=== PATIENT | male | born 1955 | race Caucasian/White ===

== ENCOUNTER 2024-03-05 12:12 | Emergency (ER) | payer MEDICARE, OTHER, SELFPAY ==
[2024-03-05 12:45] VITALS: BP 127/68; PULSE 53; RESP 16; TEMP 37.1; O2SAT 96; BMI 28.6
--- NOTE | 2024-03-05 12:50 | DI.RAD.S_ITS ---
PROCEDURE: XR CHEST 1V INDICATIONS: chest pain TECHNIQUE: One view of the chest was acquired. COMPARISON: None. FINDINGS: Surgical changes and devices: None. Lungs and pleura: Minor left base atelectasis. No pneumothorax or significant pleural effusion. Nonspecific, small irregular nodular opacity in the left mid lung and at the left lung base. Mediastinum: Mediastinal contours appear normal. Heart size is normal. Bones and chest wall: No suspicious bony lesions. Overlying soft tissues appear unremarkable. IMPRESSION: Minor left base atelectasis or small infection. Small nodular opacities in the left mid and lower lung. Further evaluation with two view chest may be helpful and/or comparison to prior exams. Dictated by: Ruby Fish M.D. on 03/05/2024 at 15:14 Approved by: Ruby Fish M.D. on 03/05/2024 at 15:16
[2024-03-05 13:03] LABS: Add Manual Diff / Slide Review NO; Basophils Absolute Auto 0 /uL (0-100); Basophils Percent Auto 0.9 % (0-2); Eosinophils Absolute Auto 200 /uL (0-450); Eosinophils Percent Auto 4.1 % (2-4); Hematocrit 43.7 % (41-53); Hemoglobin 14.7 g/dL (13.5-17.5); Lymphocytes Absolute Auto 300 /uL (1100-4500); Lymphocytes Percent Auto 8.6 % (25-40); Mean Corpuscular HGB Conc 33.6 % (30-36); Mean Corpuscular Hemoglobin 30.7 PG (26-34); Mean Corpuscular Volume 91.4 fL (80-100); Monocytes Absolute Auto 300 /uL (0-900); Monocytes Percent Auto 8.8 % (3-14); Neutrophils Absolute Auto 2900 /uL (1500-7000); Neutrophils Percent Auto 77.6 % (50-75); Platelet Count 195 X10^3/uL (150-400); Red Blood Cell Count 4.78 X10^6/uL (4.5-5.9); Red Cell Distribution Width 13.3 % (11.6-14.8); White Blood Cell Count 3.7 X10^3/uL (4.5-11.0)
[2024-03-05 13:14] LABS: Prothrombin Time 11.7 SECONDS (9.4-12.5)
[2024-03-05 13:15] LABS: PTT Partial Thromboplastin Tim 26 SECONDS (25.1-36.5)
[2024-03-05 13:19] LABS: Alanine Aminotransferase 25 IU/L (<50); Albumin 4.3 g/dL (3.5-5.0); Albumin Globulin Ratio 1.9 (1.0-2.8); Alkaline Phosphatase 67 U/L (38-126); Aspartate Aminotransferase 32 IU/L (17-59); BUN Creatinine Ratio 14.9 (6-22); Blood Urea Nitrogen 11 mg/dL (9-20); Carbon Dioxide 25 mmol/L (22-32); Chloride 108 mmol/L (98-107); Creatine Kinase 81 U/L (55-170); Estimated Glomerular Filt Rate > 60 mL/min (>60); Globulin 2.3 g/dL (1.7-4.1); Glucose 108 mg/dL (80-110); Lipase 80 U/L (23-300); Magnesium 2.1 mg/dL (1.6-2.3); Potassium 4.5 mmol/L (3.4-5.1); Sodium 137 mmol/L (137-145); Total Protein 6.6 g/dL (6.3-8.2)
[2024-03-05 13:20] LABS: HEMOLYSIS 53 (0-50)
[2024-03-05 13:31] LABS: Troponin I < 0.012 ng/mL (0.01-0.034)
[2024-03-05 14:23] VITALS: BP 130/75; PULSE 51; RESP 17; O2SAT 97
--- NOTE | 2024-03-05 14:35 | PC.NURSE ---
Pt mowed lawn, pressure washed and went on a short bike ride Tuesday. Pt began having intermittent episodes of vertigo or lightheadedness and some tiredness Tuesday evening around 11pm while looking at something stressful. Endorses little bit of congestion and mild ear discomfort since Tuesday. Pt reports recent HI on 02/14/24. Pt also reports resuming his oral chemo last Tuesday. Denies chest pain and denies SOB at this time. Call light within reach and encouraged to use for needs or any changes in symptoms.
--- NOTE | 2024-03-05 15:44 | ED.CHESTPAIN ---
HPI - Chest Pain General Chief Complaint: Chest Pain Stated Complaint: Light Headed, Dizzy, History of Heart Issue Time Seen by Provider: 03/05/24 13:18 Source: patient, RN notes reviewed and old records reviewed Mode of arrival: Ambulatory Limitations: no limitations History of Present Illness HPI narrative: 68-year-old male with history of hypertension, dyslipidemia, GERD with recent STEMI had a stent in his LAD for 100% lesion on February 13. Patient complaint of dizziness/vertigo since Tuesday. He states it is improving. He states it seems to be worse when he is upright. He does not really appreciate any worsening with movement of his head. No headaches, no numbness tingling or weakness that is new, no difficulty with ambulation. Has a little nauseated with the onset of symptoms but no longer. No vomiting. He has not had similar symptoms in the past. Denies any chest pain or shortness of breath. No issues with bowel movements or urination. He does have little bit of chronic baseline neuropathy which he states has not changed. Patient does note his pulse has been quite low sometimes down into the 40s. He was started on metoprolol after his myocardial infarction he takes 12.5 mg daily because his pulse dropped to low with a full dose of 25 mg. Patient reached out to his physician to see if he can stop it they were uncomfortable with this and told him to come to be evaluated. Patient is on aspirin daily, aminofen, atorvastatin, bupropion, Plavix, lenalidomide, losartan, pantoprazole, sildenafil PRN, patient also has PRN Benadryl and loratadine as well as nitro. Patient states had his stent placed but denies other major surgeries. Does have allergy to niacin and gluten. No tobacco, occasional alcohol last drink was on Tuesday. No recreational drugs. Primary care is through the [facility], he is following with Cardiology through [facility]. Related Data Allergies Allergy/AdvReac Type Severity Reaction Status Date / Time gluten Allergy Verified 03/05/24 12:49 niacin Allergy Verified 03/05/24 12:49 Review of Systems Review of Systems ROS Unobtainable: All systems reviewed & are unremarkable except as noted in HPI and below Patient History Social History Smoking Status: Never smoker Smoking Status: Never smoker Substance Use Type: does not use Exam Narrative Exam Narrative: GEN: well nourished, well appearing male, alert and oriented x [default value], patient appears to be in no acute distress. HEENT: Atraumatic, pupils are equal round reactive to light, extraocular movements are intact, no nystagmus, nares are clear, TMs are clear with no fluid, there is no conjunctival pallor. Throat is clear without any exudates, erythema, tonsillar enlargement or uvular deviation, no facial droop. HEART: Bradycardic but regular rate and rhythm without murmur, clicks, rubs. Pulses are equal in upper and lower extremities LUNGS:Lungs clear to auscultation, no wheezes, rales, crackles, chest moves symmetrically ABD:bowel sounds normal, soft, non-tender, no guarding, rebound, rigidity, no masses noted, no hepatosplenomegaly :No CVA tenderness MSCL: Non-tender, no muscle atrophy, muscles strength 5/5 upper and lower extremities, full range of motion, normal gait NEURO:CN 2-12 intact, sensation normal, finger nose finger test normal, heel vargas test normal, no dysarthria. No aphasia. Initial Vital Signs Initial Vital Signs: Vital Signs Temperature 98.7 F 03/05/24 12:45 Pulse Rate 53 L 03/05/24 12:45 Respiratory Rate 16 03/05/24 12:45 Blood Pressure 127/68 03/05/24 12:45 Pulse Oximetry 96 03/05/24 12:45 Oxygen Delivery Method Room Air 03/05/24 12:45 Course Orders Ordered: ED Orders 03/05/24 12:50 XR chest 1V Stat EKG-12 Lead Stat 03/05/24 12:52 Complete Blood Count AUTO DIFF Stat Comprehensive Metabolic Panel Stat Lipase Stat Magnesium Stat PTT Partial Thromboplastin Charlie Stat Prothrombin Time INR Stat Troponin & CK Cardiac Panel Stat 03/05/24 16:00 Trop I [Troponin I] Stat Vital Signs Vital signs: Vital Signs - 8 hr 03/05/24 12:45 03/05/24 14:23 Temperature 98.7 F Pulse Rate 53 L 51 L Respiratory Rate 16 17 Blood Pressure 127/68 130/75 Pulse Oximetry 96 97 Oxygen Delivery Method Room Air Room Air MDM - Chest Pain Lab Data 03/05/24 12:52 03/05/24 12:52 Labs: Lab Results 03/05/24 03/05/24 Range/Units 12:52 16:00 WBC 3.7 L (4.5-11.0) X10^3/uL RBC 4.78 (4.5-5.9) X10^6/uL Hgb 14.7 (13.5-17.5) g/dL Hct 43.7 (41-53) % MCV 91.4 (80-100) fL MCH 30.7 (26-34) PG MCHC 33.6 (30-36) % RDW 13.3 (11.6-14.8) % Plt Count 195 (150-400) X10^3/uL Neut % (Auto) 77.6 H (50-75) % Lymph % (Auto) 8.6 L (25-40) % Cooke % (Auto) 8.8 (3-14) % Eos % (Auto) 4.1 H (2-4) % Baso % (Auto) 0.9 (0-2) % Neut # (Auto) 2900 (7627-8062) /uL Lymph # (Auto) 300 L (5812-3572) /uL Cooke # (Auto) 300 (0-900) /uL Eos # (Auto) 200 (0-450) /uL Baso # (Auto) 0 (0-100) /uL PT 11.7 (9.4-12.5) SECONDS INR 1.0 (0.9-1.3) APTT 26 (25.1-36.5) SECONDS Sodium 137 (137-145) mmol/L Potassium 4.5 (3.4-5.1) mmol/L Chloride 108 H (98-107) mmol/L Carbon Dioxide 25 (22-32) mmol/L BUN 11 (9-20) mg/dL Creatinine 0.74 (0.66-1.25) mg/dL Estimated GFR > 60 (>60) mL/min BUN/Creatinine Ratio 14.9 (6-22) Glucose 108 (80-110) mg/dL Calcium 9.0 (8.4-10.2) mg/dL Magnesium 2.1 (1.6-2.3) mg/dL Total Bilirubin 1.0 (0.2-1.3) mg/dL AST 32 (17-59) IU/L ALT 25 (<50) IU/L Alkaline Phosphatase 67 (38-126) U/L Total Creatine Kinase 81 (55-170) U/L Troponin I < 0.012 < 0.012 (0.01-0.034) ng/mL Total Protein 6.6 (6.3-8.2) g/dL Albumin 4.3 (3.5-5.0) g/dL Globulin 2.3 (1.7-4.1) g/dL Albumin/Globulin Ratio 1.9 (1.0-2.8) Lipase 80 (23-300) U/L Imaging Data Chest x-ray: Radiologist's Impression: [address] [address] XRay Report Signed Patient: ANGELLA ORELLANA MR#: [id number] : 1955 Acct:[id number] Age/Sex: 68 / M Date of Service: 03/05/24 Loc: ED Accession Number: [id number] Procedure: XR chest 1V Ordering Provider: Chrissy Everett D.O. PROCEDURE: XR CHEST 1V INDICATIONS: chest pain TECHNIQUE: One view of the chest was acquired. COMPARISON: None. FINDINGS: Surgical changes and devices: None. Lungs and pleura: Minor left base atelectasis. No pneumothorax or significant pleural effusion. Nonspecific, small irregular nodular opacity in the left mid lung and at the left lung base. Mediastinum: Mediastinal contours appear normal. Heart size is normal. Bones and chest wall: No suspicious bony lesions. Overlying soft tissues appear unremarkable. IMPRESSION: Minor left base atelectasis or small infection. Small nodular opacities in the left mid and lower lung. Further evaluation with two view chest may be helpful and/or comparison to prior exams. Dictated by: Ruby Fish M.D. on 03/05/2024 at 15:14 Approved by: Ruby Fish M.D. on 03/05/2024 at 15:16 ECG Data Attestation: I personally reviewed and interpreted this ECG as follows: Interpretation: Sinus bradycardia first-degree AV block, rate of 51 MS 252 QRS of 96 QTC 462. Patient has new T-wave inversions V1 through for with prior for comparison from 03/11/2023 EKG 2. Sinus bradycardia with first-degree AV block, rate of 53 MS 264 QRS of 100 QTC 474. Patient does have T-wave inversions in V1 through 4. No dynamic changes from me skin 1st EKG earlier today to 2nd. Patient does note after his IN on repeat EKGs he was told that his T-waves had inverted and that this may or may not go away. MDM Narrative Medical decision making narrative: Patient has been bradycardic occasional heart rate down into the 40s. Labs show white count of 3.7, hemoglobin of 14 platelets of 195, INR is 1, sodium is 137, potassium 4.5, chloride 108 CO2 is 25 BUN 11 creatinine 0.74, rise normal LFTs. Patient's magnesium 2.1, troponin less than 0.012. Troponin was repeated and was negative. Patient has not had any chest pain or shortness of breath or cardiac symptoms. X-ray shows minor left basilar atelectasis or small infection, small nodular opacities left mid lung. EKG does show new T-wave changes in lateral leads. No dynamic changes from EKG 1 2 EKG to today patient also describes that he had flipped T-waves on his EKG after his IN which has been persistent. Patient does not have any cardiac symptoms, does have some mild vertigo symptoms but is also noted to be bradycardic he is noted that he thinks that maybe the source of his symptoms does not have any movement component. His neurologic exam is otherwise normal. No hypotension here in the department. Patient has not had any syncope. Discussed with patient we will have him hold his metoprolol for the next 24 hours to see if symptoms improve. He describes symptoms as very mild. Discussed return precautions all questions answered. Discharge Plan Departure Patient Disposition: Home Clinical Impression: Dizziness Instructions: DI for Dizziness-Nonvertigo Activity Restrictions/Additional Instructions: Follow-up with your physician for recheck if your symptoms are persisting. You can hold your metoprolol for the next 24 hours, if your symptoms significantly improve while being off her metoprolol talk with your physician about alternative choices. Please return for new or worsening symptoms, severe headaches, sudden changes to mentation, new numbness, tingling or weakness, difficulty with speech or facial droop, new chest pain or shortness of breath, difficulty with ambulation or other new or concerning changes. Stand Alone Forms: Patient Portal/API
[2024-03-05 16:40] LABS: Troponin I < 0.012 ng/mL (0.01-0.034)
[2024-03-05 17:11] VITALS: BP 120/66; PULSE 49; RESP 20; O2SAT 94
== END 2024-03-05 17:10 | disposition home or self-care (01) ==
PROVIDERS: Emergency Provider Emergency Medicine
DX: R42 Dizziness and giddiness (principal); R00.1 Bradycardia, unspecified; I25.2 Old myocardial infarction; I10 Essential (primary) hypertension
CPT/HCPCS: 36415; 71045; 80053; 82550; 83690; 83735; 84484; 85025; 85610; 85730; 93005; 93010; 99283; 99284